=== PATIENT | male | born 1975 | race African-American/Black ===

== ENCOUNTER 2021-04-11 19:06 | Emergency (ER) | payer SELFPAY ==
[2021-04-12 15:07] LABS: SARS-CoV-2 PCR by NAA DETECTED (NotDetected)
== END 2021-04-11 20:19 | disposition home or self-care (01) ==
LOC: CSHERS 19:06
DX: U07.1 COVID-19 (principal)
CPT/HCPCS: 99283; U0003; U0005

== ENCOUNTER 2022-05-16 17:54 | Emergency (ER) | payer OTHER, SELFPAY ==
[2022-05-16] MEDS ORDERED: Ketorolac Tromethamine 30 MG/ML VIAL ONE (18:31)
[2022-05-16] MEDS ORDERED: Acetaminophen 500 MG TAB ONE (18:31)
== END 2022-05-16 18:50 | disposition home or self-care (01) ==
LOC: CSHERS 17:54
DX: S39.012A Strain of muscle, fascia and tendon of lower back, initial encounter (principal); V43.52XA Car driver injured in collision with other type car in traffic accident, initial encounter
CPT/HCPCS: 96372; 99283; J1885

== ENCOUNTER 2022-12-01 18:46 | Emergency (ER) | payer SELFPAY | END 2022-12-01 19:52 | disposition home or self-care (01) | LOC: CSHERS 18:46 | DX: S01.00XD Unspecified open wound of scalp, subsequent encounter (principal); F17.200 Nicotine dependence, unspecified, uncomplicated | CPT/HCPCS: 99282 ==

== ENCOUNTER 2024-02-21 10:59 | Emergency (ER) | payer SELFPAY | END 2024-02-21 12:00 | disposition home or self-care (01) | LOC: CSHERS 10:59 | DX: Z48.00 Encounter for change or removal of nonsurgical wound dressing (principal) | CPT/HCPCS: 99282 ==